=== PATIENT | female | born 1990 | race Hispanic/Latino ===

== ENCOUNTER 2024-06-06 21:21 | Inpatient (IN) | payer BC ==
[2024-06-06] MEDS ORDERED: hydrALAZINE 20 MG/ML VIAL SLOW IVP PRN (21:35)
[2024-06-06 22:06] VITALS: BMI 38.3
[2024-06-06 22:25] LABS: Fetal Membranes Rupture No Membranes Rupture (No Rupture)
[2024-06-06 23:57] LABS: Bilirubin Neg (Negative); Blood, Urine Negative (Negative); Clarity Clear (Clear); Glucose, Urine (Dipstick) 50 mg/dL (Negative); Ketone, Urine Negative (Negative); Leukocyte Negative (Negative); Nitrite Negative (Negative); Protein, Urine (Dipstick) Negative (Neg-Trace); Specific Gravity, Urine 1.005 (1.005-1.030); Urobilinogen Normal mg/dL (Less than 2)
[2024-06-07 00:14] LABS: Bacteria/HPF None Seen HPF (None Seen); CAUTI Indications for Culture Pregnancy; RBC/HPF 0-3 HPF (0-3); Squamous Epithelial 0-3 HPF (0-3); WBC/HPF 0-3 HPF (0-3)
[2024-06-07 00:15] LABS: Urine Culture Reflex No No; Urine Culture Reflex Yes Yes
[2024-06-07 00:36] LABS: #Basophils 0.05 10x3/uL (0.0-0.2); #Eosinophils 0.12 10x3/uL (0.0-0.5); #Monocytes 0.68 10x3/uL (0.0-1.1); #Neutrophils 6.18 10x3/uL (1.5-8.4); %Basophils 0.5 % (0.0-2.0); %Eosinophils 1.3 % (0.0-6.0); %Lymphocytes 22.9 % (18.0-47.0); %Monocytes 7.4 % (0.0-10.0); %Neutrophils 67.2 % (40.0-75.0); Hematocrit 34.9 % (34.9-44.5); Hemoglobin 11.8 g/dL (12.0-15.5); Mean Corpuscular HGB CONC 33.8 g/dL (32.0-36.0); Mean Corpuscular Hemoglobin 28.8 pg (27.0-33.0); Mean Corpuscular Volume 85.1 fL (81.6-98.3); Mean Platelet Volume 11.7 fL (7.4-10.4); Platelet Count 224 10x3/uL (150-450); RBC Distribution Width 12.8 % (11.5-14.5); White Blood Cell (WBC) Count 9.2 10x3/uL (3.5-10.5)
[2024-06-07 00:51] LABS: ALT (SGPT) 15 U/L (8-55); AST (SGOT) 14 U/L (5-34); Albumin 2.5 g/dL (3.5-5.0); Alkaline Phosphatase 146 U/L (40-110); Anion Gap 15 mmol/L (10-20); BUN (Urea Nitrogen) 7 mg/dL (7.0-18.7); Bilirubin, Total 0.2 mg/dL (0.2-1.2); Calc. Creatinine Clearance 191 mL/min (70-130); Calcium 8.8 mg/dL (7.8-10.44); Carbon Dioxide 18 mmol/L (22-29); Chloride 110 mmol/L (98-107); Estimated GFR 121; Globulin 3.9 g/dL (2.4-3.5); Glucose 121 mg/dL (70-105); Potassium 4.1 mmol/L (3.5-5.1); Protein, Total 6.4 g/dL (6.0-8.3); Sodium 139 mmol/L (136-145)
[2024-06-07] MEDS: NIFEdipine 10 MG CAP ONE (01:15)
[2024-06-07] MEDS: Morphine 4 MG/ML VIAL SLOW IVP SCH (01:35)
[2024-06-07] MEDS ORDERED: Promethazine HCl 25 MG/ML VIAL IM PRN (05:25)
[2024-06-07] MEDS ORDERED: Misoprostol 200 MCG TAB PR PRN (05:25)
[2024-06-07] MEDS ORDERED: Zolpidem Tartrate 5 MG TAB PO PRN (05:25)
[2024-06-07] MEDS ORDERED: Ondansetron PF 4 MG/2 ML Vial IVP PRN (05:25)
[2024-06-07] MEDS ORDERED: Tranexamic Acid 1,000 MG/10 ML VIAL IVP PRN (05:25)
[2024-06-07] MEDS ORDERED: hydrALAZINE 20 MG/ML VIAL SLOW IVP PRN (05:25)
[2024-06-07] MEDS ORDERED: Carboprost 250 MCG/ML AMP IM PRN (05:25)
[2024-06-07] MEDS ORDERED: Methylergonovine 0.2 MG/ML VIAL IM PRN (05:25)
[2024-06-07] MEDS ORDERED: Oxytocin 30 units/NS 500 ML 500 ML IV SCH (05:30)
[2024-06-07] MEDS ORDERED: NIFEdipine 10 MG CAP PO PRN (05:36)
[2024-06-07] MEDS: Betamet Acet/Betamet Na Ph 30 MG/5 ML VIAL ONE (05:48)
[2024-06-07] MEDS: Magnesium Sulfate 20 gm/500 ml 20 GM/500 ML BAG ONE (05:53)
[2024-06-07] MEDS ORDERED: Glucagon 1 MG/ML KIT IM PRN (05:55)
[2024-06-07] MEDS ORDERED: Insulin Lispro 100 UNIT/ML 10 ML VIAL SC PRN (05:55)
[2024-06-07] MEDS ORDERED: Dextrose 5% in Water 1,000 ML IV PRN (05:55)
[2024-06-07] MEDS ORDERED: Dextrose 50% Abboject 50 ML SYRINGE SLOW IVP PRN (05:55)
[2024-06-07] MEDS: Lactated Ringer's 1,000 ML IV SCH (06:00)
[2024-06-07] MEDS: Betamet Acet/Betamet Na Ph 30 MG/5 ML VIAL IM SCH (06:29)
[2024-06-07 06:51] LABS: Syphilis Antibody Nonreactive (Nonreactive); Syphilis Antibody Index 0.04 S/CO (<1.00 Non-Reactive)
[2024-06-07 06:52] LABS: HBsAg Index 0.25 S/CO (0-0.99); Hep B Surf Ag - L&D Non-Reactive S/CO (NonReactive)
[2024-06-07] MEDS: Acetaminophen 500 MG TAB PO PRN (10:11)
[2024-06-07] MEDS: Magnesium Sulfate 20 gm/500 ml 20 GM/500 ML BAG IVPB SCH (13:48)
[2024-06-07] MEDS: NIFEdipine 10 MG CAP PO SCH (23:34)
[2024-06-08] MEDS ORDERED: Acetaminophen 325 MG TAB PO PRN (10:49)
[2024-06-08] MEDS: Prenatal Vitamin 1 TAB PO SCH (17:37)
[2024-06-09] MEDS: Prenatal Vitamin 1 TAB PO SCH (08:56)
[2024-06-09 11:28] VITALS: BP 105/59; TEMP 97.5
== END 2024-06-09 13:00 | disposition home or self-care (01) | DRG 833 ==
LOC: CSHLD/OP 21:21 → CSHLD 06-07 06:29 → CSHANTE 06-08 13:20
PROVIDERS: ADMIT Student in an Organized Health Care Education/Training Program; ATTEND Student in an Organized Health Care Education/Training Program
DX: O42.913 Preterm premature rupture of membranes, unspecified as to length of time between rupture and onset of labor, third trimester (principal); O24.420 Gestational diabetes mellitus in childbirth, diet controlled; O34.211 Maternal care for low transverse scar from previous cesarean delivery; Z3A.32 32 weeks gestation of pregnancy
CPT/HCPCS: 36416; 76817; 76819; 80053; 81001; 84112; 85025; 86780; 86850; 86900; 86901; 87086; 87340; 87480; 87510; 87660; 99285; J0702; J2272; J3475

== ENCOUNTER 2024-07-07 18:30 | Day surgery (SDC) | payer BC ==
[2024-07-07 19:41] VITALS: BMI 40.0
[2024-07-07] MEDS ORDERED: hydrALAZINE 20 MG/ML VIAL SLOW IVP PRN (20:51)
[2024-07-07 20:57] LABS: Fetal Membranes Rupture No Membranes Rupture (No Rupture)
[2024-07-07] MEDS ORDERED: Lactated Ringer's 1,000 ML IV SCH (21:00)
[2024-07-07] MEDS: Lactated Ringer's 1,000 ML IV SCH (21:02)
== END 2024-07-07 22:40 | disposition home or self-care (01) ==
LOC: CSHLD/OP 18:30
PROVIDERS: ATTEND Student in an Organized Health Care Education/Training Program
DX: O47.1 False labor at or after 37 completed weeks of gestation (principal); Z03.71 Encounter for suspected problem with amniotic cavity and membrane ruled out; O24.419 Gestational diabetes mellitus in pregnancy, unspecified control; Z3A.37 37 weeks gestation of pregnancy; Z87.59 Personal history of other complications of pregnancy, childbirth and the puerperium; Z79.899 Other long term (current) drug therapy
CPT/HCPCS: 84112

== ENCOUNTER 2024-07-08 14:38 | Day surgery (SDC) | payer BC ==
[2024-07-08 15:12] VITALS: BMI 40.0
[2024-07-08 16:01] LABS: Fetal Membranes Rupture No Membranes Rupture (No Rupture)
== END 2024-07-08 16:39 | disposition home or self-care (01) ==
LOC: CSHLD/OP 14:38
PROVIDERS: ATTEND Student in an Organized Health Care Education/Training Program
DX: O47.1 False labor at or after 37 completed weeks of gestation (principal); O09.43 Supervision of pregnancy with grand multiparity, third trimester; O34.211 Maternal care for low transverse scar from previous cesarean delivery; Z3A.37 37 weeks gestation of pregnancy; Z87.59 Personal history of other complications of pregnancy, childbirth and the puerperium; Z79.899 Other long term (current) drug therapy
CPT/HCPCS: 84112; 99284

== ENCOUNTER 2024-07-16 07:14 | Inpatient (IN) | payer BC ==
[2024-07-16 07:44] VITALS: BMI 40.8
[2024-07-16] MEDS ORDERED: Bicitra 30 ML UDCUP PO PRN (08:35)
[2024-07-16] MEDS ORDERED: Ondansetron PF 4 MG/2 ML Vial IVP PRN ×3 (08:35→10:44)
[2024-07-16] MEDS ORDERED: Misoprostol 200 MCG TAB PR PRN ×2 (08:35→10:30)
[2024-07-16] MEDS ORDERED: Methylergonovine 0.2 MG/ML VIAL IM PRN ×2 (08:35→10:30)
[2024-07-16] MEDS ORDERED: Carboprost 250 MCG/ML AMP IM PRN (08:35)
[2024-07-16] MEDS ORDERED: Famotidine/PF 20 mg/2ml Vial SLOW IVP PRN (08:35)
[2024-07-16] MEDS ORDERED: hydrALAZINE 20 MG/ML VIAL SLOW IVP PRN ×2 (08:35→10:30)
[2024-07-16] MEDS ORDERED: Promethazine HCl 25 MG/ML VIAL IM PRN ×2 (08:35→10:44)
[2024-07-16] MEDS ORDERED: Diphenoxylate HCl/Atropine Tablet PO PRN (08:35)
[2024-07-16] MEDS ORDERED: CEFAZOLIN 2 GM in Sodium Chloride 0.9% 100 ML IVPB SCH (08:45)
[2024-07-16] MEDS ORDERED: Oxytocin 30 units/NS 500 ML 500 ML IV SCH ×2 (08:45→10:30)
[2024-07-16 08:54] LABS: Hematocrit 38.3 % (34.9-44.5); Hemoglobin 12.5 g/dL (12.0-15.5); Mean Corpuscular HGB CONC 32.6 g/dL (32.0-36.0); Mean Corpuscular Hemoglobin 27.2 pg (27.0-33.0); Mean Corpuscular Volume 83.3 fL (81.6-98.3); Mean Platelet Volume 12.2 fL (7.4-10.4); Platelet Count 178 10x3/uL (150-450); RBC Distribution Width 14.2 % (11.5-14.5); White Blood Cell (WBC) Count 10.3 10x3/uL (3.5-10.5)
[2024-07-16 09:25] LABS: Syphilis Antibody Nonreactive (Nonreactive); Syphilis Antibody Index 0.05 S/CO (<1.00 Non-Reactive)
[2024-07-16 09:27] LABS: HBsAg Index 0.17 S/CO (0-0.99); Hep B Surf Ag - L&D Non-Reactive S/CO (NonReactive)
[2024-07-16] MEDS ORDERED: diphenhydrAMINE 25 MG CAP PO PRN (10:30)
[2024-07-16] MEDS ORDERED: Lanolin Ointment 7 GM TUBE TOP PRN (10:30)
[2024-07-16] MEDS ORDERED: Meperidine HCl/PF 25 MG (1 mL) VIAL SLOW IVP PRN (10:44)
[2024-07-16] MEDS ORDERED: Naloxone HCl 0.4 mg/ml Vial IVP PRN ×2 (10:44)
[2024-07-16] MEDS ORDERED: diphenhydrAMINE 50 MG/ML VIAL IVP PRN (10:44)
[2024-07-16] MEDS ORDERED: Naloxone HCl 0.4 mg/ml Vial IV PRN (10:44)
[2024-07-16] MEDS ORDERED: Moisturizing Cream (Eucerin) 113 GM JAR TOP PRN (10:44)
[2024-07-16] MEDS ORDERED: fentaNYL 50 mcg/mL 1 mL Vial SLOW IVP PRN (10:44)
[2024-07-16] MEDS ORDERED: Ketorolac Tromethamine 30 MG (1 mL) VIAL IVP SCH (10:45)
[2024-07-16] MEDS ORDERED: Communication Order-Pharmacy FS SCH (10:45)
[2024-07-16] MEDS: Ondansetron PF 4 MG/2 ML Vial IVP PRN (12:33)
[2024-07-16] MEDS: Ketorolac Tromethamine 30 MG (1 mL) VIAL IVP SCH (16:35)
[2024-07-16] MEDS: Morphine PF 10 MG/10 ML VIAL ONE (19:23)
[2024-07-16] MEDS: Dexamethasone 10 MG/ML VIAL ONE ×2 (19:23)
[2024-07-16] MEDS: Ketorolac Tromethamine 30 MG (1 mL) VIAL ONE (19:23)
[2024-07-16] MEDS: Oxytocin 10 UNITS/ML VIAL ONE (19:23)
[2024-07-16] MEDS: Boostrix 0.5 ML (Tdap) VIAL (>/=7 yrs of age) IM ONE (19:23)
[2024-07-16] MEDS: CEFAZOLIN 2 GM VIAL ONE (19:23)
[2024-07-16] MEDS: Dexmedetomidine 200 MCG/2 ML VIAL ONE (19:23)
[2024-07-16] MEDS: Ferrous Sulfate 325 MG TAB PO SCH (21:49)
[2024-07-16] MEDS: Docusate 100 MG CAP PO SCH (21:49)
[2024-07-16] MEDS ORDERED: HYDROcodone/Acetaminophen 5/325 mg Tablet PO PRN ×2 (22:45)
[2024-07-17 05:56] LABS: Hematocrit 29.7 % (34.9-44.5); Hemoglobin 10.1 g/dL (12.0-15.5); Mean Corpuscular Hemoglobin 28.3 pg (27.0-33.0); Mean Corpuscular Volume 83.2 fL (81.6-98.3); Mean Platelet Volume 12.8 fL (7.4-10.4); Platelet Count 175 10x3/uL (150-450); RBC Distribution Width 14.2 % (11.5-14.5); Red Blood Cell (RBC) Count 3.57 10x6/uL (3.90-5.03); White Blood Cell (WBC) Count 11.7 10x3/uL (3.5-10.5)
[2024-07-17] MEDS: Prenatal Vitamin 1 TAB PO SCH (07:37)
[2024-07-17] MEDS: Ibuprofen 800 MG TAB PO SCH (15:44)
[2024-07-17] MEDS: Simethicone Chewable 80 MG TAB PO PRN (20:52)
[2024-07-18 07:52] VITALS: BP 114/64; TEMP 98.2
== END 2024-07-18 15:45 | disposition home or self-care (01) | DRG 788 ==
LOC: CSHLD/OP 07:14 → CSHLD 08:59 → CSHPED 13:15
PROVIDERS: ADMIT Student in an Organized Health Care Education/Training Program; ATTEND Student in an Organized Health Care Education/Training Program
PROC: 10D00Z1 Extraction of Products of Conception, Low, Open Approach (ICD-10-PCS; principal; 2024-07-16)
DX: O24.429 Gestational diabetes mellitus in childbirth, unspecified control (principal); O34.211 Maternal care for low transverse scar from previous cesarean delivery; Z3A.38 38 weeks gestation of pregnancy; Z37.0 Single live birth; Z79.82 Long term (current) use of aspirin; O34.03 Maternal care for unspecified congenital malformation of uterus, third trimester; Q51.818 Other congenital malformations of uterus
CPT/HCPCS: 36415; 36416; 85027; 86780; 86850; 86900; 86901; 87340; J1100; J1885; J2274; J2405; J2590